=== PATIENT | female | born 1970 | race African-American/Black ===

== ENCOUNTER 2024-11-22 03:30 | Emergency (ER) | payer SELFPAY ==
[~2024-11-22] VITALS: Ht 172.7 cm; Wt 83.7 kg
[2024-11-22 03:42] VITALS: BP 157/83; TEMP 36.6; O2SAT 100
[2024-11-22 03:50] VITALS: PULSE 64; RESP 20; O2SAT 100
[2024-11-22 04:15] LABS: CLARITY URINE CLEAR (CLEAR); COLOR URINE YELLOW (YELLOW); GLUCOSE URINE NEGATIVE (NEGATIVE); KETONES URINE NEGATIVE (NEGATIVE); LEUKOCYTE ESTERASE URINE 3+ (NEGATIVE); NITRITE URINE NEGATIVE (NEGATIVE); OCCULT BLOOD URINE 3+ (NEGATIVE); PH URINE 5.5 (4.5-8.0); PROTEIN URINE TRACE (NEGATIVE); SPECIFIC GRAVITY URINE 1.014 (1.005-1.030); UROBILINOGEN URINE 0.2 E.U./dL (0.2-1.0)
[2024-11-22 06:05] LABS: SQUAMOUS EPITHELIAL CELL URINE FEW /lpf (RARE/1+); WBC URINE TNTC /hpf (0-2)
[2024-11-22 06:06] LABS: RBC URINE 25-50 /hpf (0-2)
[2024-11-22 06:07] LABS: BACTERIA URINE 1+
[2024-11-22] MEDS ORDERED: SULF1TAB48 MT (06:56)
[2024-11-22] MEDS ORDERED: PHEN-815 MT (06:56)
== END 2024-11-22 10:07 | disposition home or self-care (01) ==
LOC: ER 03:30
DX: N30.90 Cystitis, unspecified without hematuria (principal)
CPT/HCPCS: 81003; 87077; 87186; 99283

== ENCOUNTER 2024-12-01 03:49 | Emergency (ER) | payer SELFPAY ==
[~2024-12-01] VITALS: Ht 172.7 cm; Wt 82.6 kg
[~2024-12-01 03:49] MED LIST: PHEN-815 MT; SULF1TAB48 MT
[2024-12-01 04:14] VITALS: O2SAT 99
[2024-12-01 04:47] LABS: BASOPHILS % 0.8 % (0.0-2.0); DIFFERENTIAL COMMENT 0; EOSINOPHILS % 1.1 % (0.0-5.0); HEMATOCRIT. 35.4 % (36.0-48.0); HEMOGLOBIN. 11.1 g/dL (12.0-16.0); LYMPHOCYTES % 25.6 % (20.0-50.0); MEAN CORPUSCULAR HEMOGLOBIN 23.5 pg (28.0-32.0); MEAN CORPUSCULAR HGB CONC 31.4 g/dL (31.0-37.0); MEAN CORPUSCULAR VOLUME 74.9 fL (81.0-99.0); MEAN PLATELET VOLUME 7.9 fl (7.4-10.4); NEUTROPHILS % 64.5 % (40.0-76.0); PLATELET 416 x1000/uL (130-400); RED BLOOD CELL COUNT 4.73 mill/uL (4.2-5.4); WHITE BLOOD COUNT 10.1 x1000/uL (4.5-11.0)
[2024-12-01 05:03] LABS: CARBON DIOXIDE 25 mEq/L (21-32); CHLORIDE 107 mEq/L (98-107); POTASSIUM 4.2 mEq/L (3.5-5.1); SODIUM 138 mEq/L (136-145)
[2024-12-01 05:04] LABS: CALCIUM 10.4 mg/dL (8.7-10.4)
[2024-12-01 05:05] LABS: CLARITY URINE CLOUDY (CLEAR); COLOR URINE YELLOW (YELLOW); GLUCOSE URINE NEGATIVE (NEGATIVE); KETONES URINE NEGATIVE (NEGATIVE); LEUKOCYTE ESTERASE URINE 1+ (NEGATIVE); NITRITE URINE NEGATIVE (NEGATIVE); OCCULT BLOOD URINE NEGATIVE (NEGATIVE); PH URINE 5.5 (4.5-8.0); PROTEIN URINE NEGATIVE (NEGATIVE); SPECIFIC GRAVITY URINE 1.017 (1.005-1.030); UROBILINOGEN URINE 0.2 E.U./dL (0.2-1.0)
[2024-12-01 05:09] LABS: CREATININE 1.1 mg/dL (0.6-1.0); GLUCOSE 118 mg/dL (70-105); TROPONIN I HIGH SENSITIVITY 8 ng/L (3.0-34); UREA NITROGEN BLOOD 11 mg/dL (9-23)
[2024-12-01 05:27] LABS: SQUAMOUS EPITHELIAL CELL URINE 1+ /lpf (RARE/1+)
[2024-12-01 05:34] LABS: RBC URINE 0-2 /hpf (0-2)
[2024-12-01 05:35] LABS: BACTERIA URINE 1+
[2024-12-01 07:17] VITALS: BP 105/58; PULSE 63; RESP 18; TEMP 36.8; O2SAT 99
== END 2024-12-01 07:19 | disposition home or self-care (01) ==
LOC: ER 03:49
DX: R51.9 Headache, unspecified (principal); Z79.899 Other long term (current) drug therapy
CPT/HCPCS: 36415; 80048; 81003; 84484; 85025; 93005; 99285